=== PATIENT | female | born 1985 | race Caucasian/White ===

== ENCOUNTER 2017-07-27 05:15 | Emergency (ER) | END 2017-07-27 07:21 | disposition home or self-care (01) ==

== ENCOUNTER 2018-10-01 18:11 | Emergency (ER) | payer MEDICAID ==
[~2018-10-01] VITALS: Ht 152.4 cm; Wt 57.5 kg
[~2018-10-01 18:11] MED LIST: IBUP-1542 PO
[2018-10-01 18:17] VITALS: Ht 152.4 cm; Wt 57.5 kg
[2018-10-01] MEDS ORDERED: IBUPROFEN 200 MG TAB PO ONE (19:00)
[2018-10-01] MEDS ORDERED: HYDROCODONE/APAP (5/325) TAB PO ONE (19:00)
[2018-10-01] MEDS ORDERED: IBUP-1542 PO (19:37)
[2018-10-01] MEDS ORDERED: HYDR-4011 PO (19:38)
--- NOTE | 2018-10-01 19:44 | ERD ---
ER Documentation Chief Complaint Chief Complaint left leg pain/injury HPI 33-year-old female presents with complaint of left knee pain after playing soccer and twisting her knee yesterday. Patient denies any blunt trauma to the knee. Patient states that it did not hurt that much yesterday but today the pain is increased. States that she is only ambulatory with crutches. Patient denies any numbness, weakness, impaired range of motion. ROS All systems reviewed and are negative except as per history of present illness. Medications Home Meds Active Scripts Hydrocodone/Acetaminophen ([place] 5-325 Tablet) 1 Each Tablet, 1 TAB PO Q6H PRN for PAIN, #15 TAB Prov:SHARON SÁNCHEZ 10/01/18 Ibuprofen* (Motrin*) 600 Mg Tab, 600 MG PO Q6, #30 TAB Prov:SHARON SÁNCHEZ 10/01/18 Ibuprofen* (Motrin*) 600 Mg Tab, 600 MG PO Q6, #30 TAB Prov:MISTY LAWS PA-C 07/27/17 Allergies Allergies: Coded Allergies: No Known Allergy (Unverified , 07/27/17) PMhx/Soc Medical and Surgical Hx: pt denies Medical Hx, pt denies Surgical Hx Hx Alcohol Use: No Hx Substance Use: No Hx Tobacco Use: No Smoking Status: Never smoker FmHx Family History: No diabetes, No coronary disease, No other Physical Exam Vitals Vital Signs Date Temp Pulse Resp B/P (MAP) Pulse Ox O2 O2 Flow FiO2 Time Delivery Rate 10/01/18 37.1 19:10 10/01/18 98.7 61 20 116/58 98 18:17 (77) Physical Exam Const: No acute distress Head: Atraumatic Eyes: Normal Conjunctiva ENT: Normal External Ears, Nose and Mouth. Neck: Full range of motion. No meningismus. Resp: Clear to auscultation bilaterally Cardio: Regular rate and rhythm, no murmurs Abd: Soft, non tender, non distended. Normal bowel sounds Skin: No petechiae or rashes Back: No midline or flank tenderness Ext: No cyanosis, or edema Neur: Awake and alert Psych: Normal Mood and Affect Lower Extremity - bilateral: Skin: No laceration Compartments: Soft Motor: Full active range of motion hip/knee/ankle/foot Sensation: Intact to light touch FDWS/MF/LF/P surfaces. Bones: Nontender pelvis/knee/proximal tibia/ malleoli/foot Joints: No effusion or laxity Pulses/Perfusion: 2+ DP, Capillary refill < 2 seconds Results 24 hrs Laboratory Tests Test 10/01/18 19:03 POC Beta HCG, Qualitative NEGATIVE Current Medications Medications Dose Sig/Hali Start Time Status Last (Trade) Ordered Route PRN Stop Time Admin Dose Reason Admin Ibuprofen 400 mg ONCE ONCE 10/01/18 DC 10/01/18 (Motrin) PO 19:00 19:10 10/01/18 19:01 1 tab ONCE ONCE 10/01/18 DC 10/01/18 Acetaminophen PO 19:00 19:10 / 10/01/18 19:01 Hydrocodone Bitart ([place] (5)) Procedures/MDM DIAGNOSTIC IMAGING REPORT Patient: DARREL PRYOR : 1985 Age: 33 Sex: F MR #: [id number] DOS: 10/01/18 1836 Ordering MD: SHARON SÁNCHEZ Location: [facility] Room/Bed: PROCEDURE: Left knee x-ray CLINICAL INDICATION: Knee pain TECHNIQUE: AP, lateral and tunnel views of the left knee were obtained. COMPARISON: None FINDINGS: There is normal mineralization. No acute fracture or dislocation is seen. There are no significant degenerative changes. There is no joint effusion. There is no significant soft tissue swelling. RPTAT: AA IMPRESSION: Normal x-ray of the left knee. .Fly King MD, MD Date Time Electronically viewed and signed by .Fly King MD, MD on 10/01/2018 19:40 .S/ CC: SHARON SÁNCHEZ [phone] MDM: Knee x-ray was ordered and results within normal limits. Based on patient's physical exam patient most likely has a knee sprain. Patient was put in a knee immobilizer and is using crutches. Patient advised that she needs an MRI as this is a soft tissue injury and this can only be obtained an outpatient basis. Patient was given contact information of Dr. Carbajal and advised to follow- up within 24 hours. I have low suspicion for neurovascular compromise, compartment syndrome, fracture, osteomyelitis, septic joint, DVT, or other emergent condition. At this time, patient is stable for discharge and outpatient management. I have instructed the patient to follow-up with his/her primary care physician in 1-2 days. I have discussed with the patient the possibility of needing to see a specialist for further workup and imaging studies if symptoms persist. I have instructed the patient to promptly return to the ER for any new or worsening symptoms including but not limited to increased pain, fever, nausea, vomiting, weakness or LOC. The patient and/or family expressed understanding of and agreement with this plan. All questions were answered. Home care instructions were provided. Communication with patient both during the exam and instructions for discharge were performed with using a high wire artist . Patient gave verbal confirmation to the practitioner, through the high wire artist, that they understood everything that was being said to them. DISCLAIMER: Inadvertent spelling and grammatical errors are likely due to EHR/dictation software use and do not reflect on the overall quality of patient care. Also, please note that the electronic time recorded on this note does not necessarily reflect the actual time of the patient encounter. Departure Diagnosis: Primary Impression: Knee injury Additional Impression: Knee pain Condition: Stable Patient Instructions: Knee Sprain Referrals: DORA CARBAJAL MD Additional Instructions: Please follow-up with an orthopedist within 24 hours. I have included the name of Dr. Carbajal who is an orthopedist in your packet. If you need to get a referral please go to your primary care provider to get a referral. SHARON SÁNCHEZ Oct 01, 2018 19:44
== END 2018-10-01 20:05 | disposition home or self-care (01) ==
LOC: FTE 18:11
DX: S89.92XA Unspecified injury of left lower leg, initial encounter (principal); X50.1XXA Overexertion from prolonged static or awkward postures, initial encounter; Y92.322 Soccer field as the place of occurrence of the external cause
CPT/HCPCS: 29505; 73562; 81025; Z7502; Z7610